=== PATIENT | female | born 1930 | race African-American/Black ===

== ENCOUNTER 2018-07-31 00:34 | Inpatient (IN) ==
[2018-07-31 02:31] LABS: Basophils % 0.2 % (0.0-0.8); Eosinophils # 0.1 10*3/uL (0.0-0.87); Eosinophils % 0.7 % (0.00-10.9); Hematocrit 29.6 VOL% (35.7-47.0); Hemoglobin 9.4 GM/DL (12.0-16.0); Immature Granulocytes % 0.2 %; Immature Granulocytes Absolute 0.02 #; Lymphocytes # 1.5 10*3/uL (1.4-4.0); Lymphocytes % 18.2 % (21.3-54.2); Mean Corpuscular HGB Conc 31.8 GM/DL (32-36); Mean Corpuscular Hemoglobin 29 PG (27-34); Mean Corpuscular Volume 90.5 FL (87-102); Mean Platelet Volume 11.6 FL (9.6-12.0); Monocytes # 0.8 10*3/uL (0.11-0.8); Monocytes % 9.7 % (1.7-12.7); Platelet Count 160 T/CUMM (130-400); Red Blood Count 3.27 MC/CUMM (3.8-5.5); Red Cell Distribution Width 14.2 % (9.3-17.3); White Blood Count 8.5 T/CUMM (4-12)
[2018-07-31 02:39] LABS: Alanine Aminotransferase 12 U/L (13-56); Albumin 3.5 G/DL (3.4-5.0); Alkaline Phosphatase 104 U/L (45-117); Aspartate Amino Transferase 18 U/L (0-37); Bilirubin,Total < 0.39 MG/DL (0.2-1.0); Blood Urea Nitrogen 40 MG/DL (7-18); Calcium 9.5 MG/DL (8.5-10.1); Glucose 97 MG/DL (74-106); INR 0.9; Osmolality,Calculated 286.5 MOS/KG (273-304); Partial Thromboplastin Time < 21.0 SECS (0-40); Potassium 4.2 MMOL/L (3.5-5.1); Sodium 139 MMOL/L (136-145); Total Protein 7.9 G/DL (6.4-8.3)
[2018-07-31] MEDS ORDERED: ONDANSETRON 4 MG/2 ML VIAL IV PRN (03:08)
[2018-07-31 03:12] LABS: Band Neutrophils 1 % (0-10); Eosinophils 1 % (0-10); Lymphocytes 17 % (20-55); Segmented Neutrophils 74 % (50-85); Total Cells Counted 100
[2018-07-31 03:13] LABS: Anisocytosis 1+; Hypochromasia 1+; Platelet Estimate Adequate
[2018-07-31] MEDS: DEXTROSE 5% NACL 0.9% 1,000 ML IV SCH (04:21)
[2018-07-31 05:42] LABS: Basophils % 0.4 % (0.0-0.8); Eosinophils # 0.1 10*3/uL (0.0-0.87); Hematocrit 24.6 VOL% (35.7-47.0); Hemoglobin 7.7 GM/DL (12.0-16.0); Immature Granulocytes % 0.4 %; Immature Granulocytes Absolute 0.03 #; Lymphocytes # 1.4 10*3/uL (1.4-4.0); Lymphocytes % 19.9 % (21.3-54.2); Mean Corpuscular HGB Conc 31.3 GM/DL (32-36); Mean Corpuscular Hemoglobin 29 PG (27-34); Mean Corpuscular Volume 91.4 FL (87-102); Mean Platelet Volume 11.2 FL (9.6-12.0); Monocytes # 0.7 10*3/uL (0.11-0.8); Monocytes % 9.4 % (1.7-12.7); Neutrophils # 4.7 10*3/uL (1.4-7.4); Neutrophils % 68.9 % (38.7-73.9); Platelet Count 139 T/CUMM (130-400); Red Blood Count 2.69 MC/CUMM (3.8-5.5); Red Cell Distribution Width 14.3 % (9.3-17.3); White Blood Count 6.9 T/CUMM (4-12)
[2018-07-31] MEDS ORDERED: SODIUM CHLORIDE 0.9% 1,000 ML IV PRN (08:14)
[2018-07-31] MEDS: PANTOPRAZOLE 40 MG VIAL IV SCH (10:27)
[2018-07-31] MEDS: DILTIAZEM CD 120 MG CAPSULE PO SCH (10:30)
[2018-07-31] MEDS: METOCLOPRAMIDE 5 MG TABLET PO SCH ×4 (11:17→21:08)
[2018-07-31] MEDS ORDERED: FUROSEMIDE 40 MG/4 ML VIAL IV ONE (13:00)
[2018-07-31 20:48] LABS: Hematocrit 33.6 VOL% (35.7-47.0)
[2018-08-01] MEDS: DEXTROSE 5% NACL 0.9% 1,000 ML IV SCH ×2 (00:42→12:25)
[2018-08-01 04:47] LABS: Basophils % 0.3 % (0.0-0.8); Eosinophils # 0.1 10*3/uL (0.0-0.87); Eosinophils % 1.2 % (0.00-10.9); Hematocrit 31.5 VOL% (35.7-47.0); Hemoglobin 10.3 GM/DL (12.0-16.0); Immature Granulocytes % 0.5 %; Immature Granulocytes Absolute 0.03 #; Lymphocytes # 1.3 10*3/uL (1.4-4.0); Lymphocytes % 20.1 % (21.3-54.2); Mean Corpuscular HGB Conc 32.7 GM/DL (32-36); Mean Corpuscular Hemoglobin 30 PG (27-34); Mean Corpuscular Volume 91.3 FL (87-102); Mean Platelet Volume 10.9 FL (9.6-12.0); Monocytes # 0.6 10*3/uL (0.11-0.8); Monocytes % 9.8 % (1.7-12.7); Neutrophils # 4.4 10*3/uL (1.4-7.4); Neutrophils % 68.1 % (38.7-73.9); Platelet Count 137 T/CUMM (130-400); Red Blood Count 3.45 MC/CUMM (3.8-5.5); Red Cell Distribution Width 14.7 % (9.3-17.3); White Blood Count 6.5 T/CUMM (4-12)
[2018-08-01 05:16] LABS: Calcium 9.2 MG/DL (8.5-10.1); Osmolality,Calculated 292.7 MOS/KG (273-304); Potassium 3.6 MMOL/L (3.5-5.1)
[2018-08-01] MEDS: METOCLOPRAMIDE 5 MG TABLET PO SCH ×4 (06:40→20:56)
[2018-08-01] MEDS: LEVOTHYROXINE 75 MCG TABLET PO SCH (06:40)
[2018-08-01] MEDS ORDERED: cloNIDine 0.2 MG/24 HR PATCH TRANSDERM SCH (09:00)
[2018-08-01] MEDS: PANTOPRAZOLE 40 MG VIAL IV SCH (09:50)
[2018-08-01] MEDS: DILTIAZEM CD 120 MG CAPSULE PO SCH (10:24)
[2018-08-01 13:49] LABS: Hematocrit 28.7 VOL% (35.7-47.0); Hemoglobin 9.2 GM/DL (12.0-16.0)
[2018-08-01 22:16] LABS: Hematocrit 23.8 VOL% (35.7-47.0); Hemoglobin 7.5 GM/DL (12.0-16.0)
[2018-08-02 04:27] LABS: Hematocrit 26.7 VOL% (35.7-47.0); Hemoglobin 8.3 GM/DL (12.0-16.0)
[2018-08-02 04:28] LABS: Basophils % 0.3 % (0.0-0.8); Eosinophils # 0.1 10*3/uL (0.0-0.87); Eosinophils % 0.6 % (0.00-10.9); Hemoglobin 8.2 GM/DL (12.0-16.0); Immature Granulocytes % 0.8 %; Lymphocytes # 1.6 10*3/uL (1.4-4.0); Lymphocytes % 12.7 % (21.3-54.2); Mean Corpuscular HGB Conc 31.5 GM/DL (32-36); Mean Corpuscular Hemoglobin 30 PG (27-34); Mean Corpuscular Volume 93.9 FL (87-102); Mean Platelet Volume 11.5 FL (9.6-12.0); Monocytes # 1.3 10*3/uL (0.11-0.8); Neutrophils # 9.4 10*3/uL (1.4-7.4); Neutrophils % 75.6 % (38.7-73.9); Platelet Count 102 T/CUMM (130-400); Red Blood Count 2.77 MC/CUMM (3.8-5.5); Red Cell Distribution Width 14.9 % (9.3-17.3); White Blood Count 12.5 T/CUMM (4-12)
[2018-08-02 04:42] LABS: Osmolality,Calculated 291.7 MOS/KG (273-304); Potassium 3.5 MMOL/L (3.5-5.1)
[2018-08-02] MEDS: METOCLOPRAMIDE 5 MG TABLET PO SCH ×4 (06:45→21:02)
[2018-08-02] MEDS: LEVOTHYROXINE 75 MCG TABLET PO SCH (06:46)
[2018-08-02] MEDS: DILTIAZEM CD 120 MG CAPSULE PO SCH (08:26)
[2018-08-02] MEDS: PANTOPRAZOLE 40 MG VIAL IV SCH (08:27)
[2018-08-02 13:46] LABS: Hematocrit 22.5 VOL% (35.7-47.0)
[2018-08-02] MEDS ORDERED: diphenhydrAMINE CAP 25 MG CAPSULE PO ONE (17:41)
[2018-08-02] MEDS: ACETAMINOPHEN 325 MG TABLET PO PRN (17:49)
[2018-08-02] MEDS ORDERED: SODIUM CHLORIDE 0.9% 1,000 ML IV PRN (23:44)
[2018-08-03 00:12] LABS: Hematocrit 23.6 VOL% (35.7-47.0); Hemoglobin 7.7 GM/DL (12.0-16.0)
[2018-08-03] MEDS: DEXTROSE 5% NACL 0.9% 1,000 ML IV SCH ×2 (05:10→20:32)
[2018-08-03 05:29] LABS: Basophils % 0.3 % (0.0-0.8); Eosinophils # 0.1 10*3/uL (0.0-0.87); Eosinophils % 1.2 % (0.00-10.9); Hematocrit 25.5 VOL% (35.7-47.0); Hemoglobin 8.3 GM/DL (12.0-16.0); Immature Granulocytes % 0.5 %; Immature Granulocytes Absolute 0.05 #; Lymphocytes # 1.1 10*3/uL (1.4-4.0); Lymphocytes % 10.8 % (21.3-54.2); Mean Corpuscular HGB Conc 32.5 GM/DL (32-36); Mean Corpuscular Hemoglobin 31 PG (27-34); Mean Corpuscular Volume 93.8 FL (87-102); Mean Platelet Volume 10.5 FL (9.6-12.0); Monocytes # 1.2 10*3/uL (0.11-0.8); Monocytes % 11.7 % (1.7-12.7); Neutrophils # 7.7 10*3/uL (1.4-7.4); Neutrophils % 75.5 % (38.7-73.9); Platelet Count 110 T/CUMM (130-400); Red Blood Count 2.72 MC/CUMM (3.8-5.5); White Blood Count 10.2 T/CUMM (4-12)
[2018-08-03 06:05] LABS: Calcium 8.3 MG/DL (8.5-10.1); Osmolality,Calculated 291.6 MOS/KG (273-304); Potassium 3.6 MMOL/L (3.5-5.1)
[2018-08-03] MEDS: LEVOTHYROXINE 75 MCG TABLET PO SCH (07:20)
[2018-08-03] MEDS: METOCLOPRAMIDE 5 MG TABLET PO SCH ×4 (09:03→20:26)
[2018-08-03] MEDS: PANTOPRAZOLE 40 MG VIAL IV SCH (09:05)
[2018-08-03] MEDS: DILTIAZEM CD 120 MG CAPSULE PO SCH (09:05)
[2018-08-03] MEDS ORDERED: LIDOCAINE 2% 5 ML VIAL ONE (12:32)
[2018-08-03] MEDS ORDERED: PROPOFOL 200 MG/20 ML VIAL IV ONE (12:32)
[2018-08-03] MEDS: ACETAMINOPHEN 325 MG TABLET PO PRN (14:05)
[2018-08-03 18:58] LABS: Hemoglobin 10.5 GM/DL (12.0-16.0)
[2018-08-04 05:50] LABS: Calcium 8.3 MG/DL (8.5-10.1); Osmolality,Calculated 283.1 MOS/KG (273-304); Potassium 3.5 MMOL/L (3.5-5.1)
[2018-08-04] MEDS: LEVOTHYROXINE 75 MCG TABLET PO SCH (05:50)
[2018-08-04 05:56] LABS: Basophils % 0.3 % (0.0-0.8); Eosinophils # 0.1 10*3/uL (0.0-0.87); Eosinophils % 0.9 % (0.00-10.9); Hematocrit 34.4 VOL% (35.7-47.0); Hemoglobin 10.8 GM/DL (12.0-16.0); Immature Granulocytes % 0.7 %; Immature Granulocytes Absolute 0.07 #; Lymphocytes # 1.1 10*3/uL (1.4-4.0); Mean Corpuscular HGB Conc 31.4 GM/DL (32-36); Mean Corpuscular Hemoglobin 30 PG (27-34); Mean Corpuscular Volume 96.4 FL (87-102); Mean Platelet Volume 12.7 FL (9.6-12.0); Monocytes # 1.2 10*3/uL (0.11-0.8); Monocytes % 11.3 % (1.7-12.7); Neutrophils # 8.2 10*3/uL (1.4-7.4); Neutrophils % 76.8 % (38.7-73.9); Platelet Count 62 T/CUMM (130-400); Red Blood Count 3.57 MC/CUMM (3.8-5.5); Red Cell Distribution Width 15.4 % (9.3-17.3); White Blood Count 10.6 T/CUMM (4-12)
[2018-08-04 06:03] LABS: Hypochromasia 1+
[2018-08-04 06:04] LABS: Microcytosis 1+; Ovalocytes Slight
[2018-08-04] MEDS: METOCLOPRAMIDE 5 MG TABLET PO SCH ×4 (08:59→20:35)
[2018-08-04] MEDS: PANTOPRAZOLE 40 MG VIAL IV SCH (09:03)
[2018-08-04] MEDS: DEXTROSE 5% NACL 0.9% 1,000 ML IV SCH ×2 (09:08→20:37)
[2018-08-04] MEDS: DILTIAZEM CD 120 MG CAPSULE PO SCH (09:19)
[2018-08-04] MEDS ORDERED: BISACODYL 5 MG TABLET PO ONE (12:00)
[2018-08-04] MEDS ORDERED: POLYETHYLENE GLYCOL POWDER 255 GM BOTTLE PO ONE (13:00)
[2018-08-05] MEDS: ACETAMINOPHEN 325 MG TABLET PO PRN (00:03)
[2018-08-05 04:32] LABS: Basophils % 0.2 % (0.0-0.8); Eosinophils # 0.1 10*3/uL (0.0-0.87); Eosinophils % 0.9 % (0.00-10.9); Hematocrit 28.8 VOL% (35.7-47.0); Hemoglobin 9.6 GM/DL (12.0-16.0); Immature Granulocytes % 0.4 %; Immature Granulocytes Absolute 0.04 #; Lymphocytes # 1.2 10*3/uL (1.4-4.0); Lymphocytes % 13.2 % (21.3-54.2); Mean Corpuscular HGB Conc 33.3 GM/DL (32-36); Mean Corpuscular Hemoglobin 30 PG (27-34); Mean Corpuscular Volume 90.9 FL (87-102); Mean Platelet Volume 11.3 FL (9.6-12.0); Monocytes % 11.1 % (1.7-12.7); Neutrophils % 74.2 % (38.7-73.9); Platelet Count 118 T/CUMM (130-400); Red Blood Count 3.17 MC/CUMM (3.8-5.5); Red Cell Distribution Width 14.9 % (9.3-17.3); White Blood Count 9.4 T/CUMM (4-12)
[2018-08-05 04:55] LABS: Calcium 8.3 MG/DL (8.5-10.1); Osmolality,Calculated 290.4 MOS/KG (273-304)
[2018-08-05] MEDS: LEVOTHYROXINE 75 MCG TABLET PO SCH (07:35)
[2018-08-05] MEDS: DILTIAZEM CD 120 MG CAPSULE PO SCH (08:47)
[2018-08-05] MEDS: POTASSIUM CHLORIDE RIDER 10 MEQ in PREMIX 1 EACH IV PRN ×5 (08:49→23:38)
[2018-08-05] MEDS: METOCLOPRAMIDE 5 MG TABLET PO SCH ×4 (09:12→21:13)
[2018-08-05] MEDS: PANTOPRAZOLE 40 MG VIAL IV SCH (09:51)
[2018-08-05] MEDS ORDERED: LACTATED RINGERS 500 ML IV ONE (11:13)
[2018-08-05] MEDS ORDERED: POLYETHYLENE GLYCOL POWDER 255 GM BOTTLE PO ONE (13:00)
[2018-08-05] MEDS ORDERED: cloNIDine 0.1 MG TABLET PO PRN (16:19)
[2018-08-05] MEDS ORDERED: cloNIDine 0.1 MG/24 HR PATCH TRANSDERM SCH (17:00)
[2018-08-05] MEDS: DEXTROSE 5% NACL 0.9% 1,000 ML IV SCH ×2 (21:12→21:16)
[2018-08-06] MEDS: POTASSIUM CHLORIDE RIDER 10 MEQ in PREMIX 1 EACH IV PRN ×2 (00:44→02:29)
[2018-08-06 05:26] LABS: Basophils % 0.2 % (0.0-0.8); Eosinophils # 0.1 10*3/uL (0.0-0.87); Eosinophils % 1.3 % (0.00-10.9); Hematocrit 30.4 VOL% (35.7-47.0); Hemoglobin 10.1 GM/DL (12.0-16.0); Immature Granulocytes % 0.4 %; Immature Granulocytes Absolute 0.04 #; Lymphocytes # 1.2 10*3/uL (1.4-4.0); Lymphocytes % 12.9 % (21.3-54.2); Mean Corpuscular HGB Conc 33.2 GM/DL (32-36); Mean Corpuscular Hemoglobin 30 PG (27-34); Mean Corpuscular Volume 91.3 FL (87-102); Mean Platelet Volume 10.8 FL (9.6-12.0); Monocytes # 0.9 10*3/uL (0.11-0.8); Monocytes % 9.7 % (1.7-12.7); Neutrophils # 7.2 10*3/uL (1.4-7.4); Neutrophils % 75.5 % (38.7-73.9); Platelet Count 140 T/CUMM (130-400); Red Blood Count 3.33 MC/CUMM (3.8-5.5); Red Cell Distribution Width 14.6 % (9.3-17.3); White Blood Count 9.5 T/CUMM (4-12)
[2018-08-06 05:35] LABS: Calcium 8.4 MG/DL (8.5-10.1); Osmolality,Calculated 285.7 MOS/KG (273-304)
[2018-08-06] MEDS: METOCLOPRAMIDE 5 MG TABLET PO SCH ×4 (08:50→21:03)
[2018-08-06] MEDS: LEVOTHYROXINE 75 MCG TABLET PO SCH (08:51)
[2018-08-06] MEDS: PANTOPRAZOLE 40 MG VIAL IV SCH (08:51)
[2018-08-06] MEDS: DILTIAZEM CD 120 MG CAPSULE PO SCH (09:33)
[2018-08-06] MEDS: DEXTROSE 5% NACL 0.9% 1,000 ML IV SCH (10:54)
[2018-08-06] MEDS ORDERED: cloNIDine 0.2 MG/24 HR PATCH TRANSDERM SCH (11:30)
[2018-08-06] MEDS ORDERED: PROPOFOL 200 MG/20 ML VIAL IV ONE (12:50)
[2018-08-06] MEDS ORDERED: ETOMIDATE 20 MG/10 ML VIAL IV ONE (12:50)
[2018-08-06] MEDS ORDERED: LIDOCAINE 2% 5 ML VIAL ONE (12:50)
[2018-08-07] MEDS: DEXTROSE 5% NACL 0.9% 1,000 ML IV SCH (00:57)
[2018-08-07] MEDS: LEVOTHYROXINE 75 MCG TABLET PO SCH (05:59)
[2018-08-07 07:25] LABS: Basophils % 0.4 % (0.0-0.8); Eosinophils # 0.1 10*3/uL (0.0-0.87); Eosinophils % 1.3 % (0.00-10.9); Hematocrit 32.6 VOL% (35.7-47.0); Hemoglobin 10.5 GM/DL (12.0-16.0); Immature Granulocytes % 0.5 %; Immature Granulocytes Absolute 0.04 #; Lymphocytes # 1.2 10*3/uL (1.4-4.0); Mean Corpuscular HGB Conc 32.2 GM/DL (32-36); Mean Corpuscular Hemoglobin 30 PG (27-34); Mean Corpuscular Volume 92.6 FL (87-102); Monocytes # 0.7 10*3/uL (0.11-0.8); Monocytes % 8.3 % (1.7-12.7); Neutrophils # 6.3 10*3/uL (1.4-7.4); Neutrophils % 75.5 % (38.7-73.9); Platelet Count 147 T/CUMM (130-400); Red Blood Count 3.52 MC/CUMM (3.8-5.5); Red Cell Distribution Width 14.8 % (9.3-17.3); White Blood Count 8.4 T/CUMM (4-12)
[2018-08-07 07:41] LABS: Calcium 8.8 MG/DL (8.5-10.1); Osmolality,Calculated 283.8 MOS/KG (273-304); Potassium 3.6 MMOL/L (3.5-5.1)
[2018-08-07] MEDS: PANTOPRAZOLE 40 MG VIAL IV SCH (10:12)
[2018-08-07] MEDS: METOCLOPRAMIDE 5 MG TABLET PO SCH ×2 (10:15→12:31)
[2018-08-07] MEDS: DILTIAZEM CD 120 MG CAPSULE PO SCH (10:15)
[2018-08-07 11:34] VITALS: BP 177/66
== END 2018-08-07 13:46 | disposition home health service (06) | DRG 378 ==
LOC: N.ED 00:34 → N.EDINP 03:08 → N.2E 03:32
PROVIDERS: ADMIT Internal Medicine; ATTEND Internal Medicine

== ENCOUNTER 2019-11-21 10:53 | Inpatient (IN) ==
[2019-11-21] MEDS ORDERED: SODIUM CHLORIDE 0.9% 500 ML IV STA (11:18)
[2019-11-21] MEDS ORDERED: PANTOPRAZOLE 40 MG VIAL IV STA (11:18)
[2019-11-21 11:30] LABS: Basophils % 0.3 % (0.0-0.8); Eosinophils # 0.1 10*3/uL (0.0-0.87); Eosinophils % 1.4 % (0.00-10.9); Hematocrit 29.8 VOL% (35.7-47.0); Hemoglobin 9.3 GM/DL (12.0-16.0); Immature Granulocytes % 0.3 %; Immature Granulocytes Absolute 0.02 #; Lymphocytes # 1.1 10*3/uL (1.4-4.0); Lymphocytes % 16.5 % (21.3-54.2); Mean Corpuscular HGB Conc 31.2 GM/DL (32-36); Mean Corpuscular Volume 96.1 FL (87-102); Mean Platelet Volume 10.3 FL (9.6-12.0); Monocytes % 8.3 % (1.7-12.7); Neutrophils % 73.2 % (38.7-73.9); Platelet Count 171 T/CUMM (130-400); Red Cell Distribution Width 13.9 % (9.3-17.3); White Blood Count 6.4 T/CUMM (4-12)
[2019-11-21 11:48] LABS: Alanine Aminotransferase 13 U/L (13-56); Albumin 3.2 G/DL (3.4-5.0); Alkaline Phosphatase 120 U/L (45-117); Aspartate Amino Transferase 17 U/L (0-37); Bilirubin,Total < 0.39 MG/DL (0.2-1.0); Blood Urea Nitrogen 38 MG/DL (7-18); Calcium 9.2 MG/DL (8.5-10.1); Estimated Glom Filtration Rate 0 ML/MIN; Glucose 94 MG/DL (74-106); Osmolality,Calculated 287.4 MOS/KG (273-304); Total Protein 7.5 G/DL (6.4-8.3)
[2019-11-21 11:51] LABS: PT Patient Result 10.9 SECS (9.8-11.9)
[2019-11-21] MEDS ORDERED: ONDANSETRON 4 MG/2 ML VIAL IV PRN (13:09)
[2019-11-21] MEDS ORDERED: DEXTROSE 50% 25 GM/50 ML VIAL IV PRN (13:09)
[2019-11-21] MEDS ORDERED: MORPHINE 4 MG/1 ML VIAL IV PRN (13:09)
[2019-11-21] MEDS ORDERED: GLUCAGON 1 MG VIAL IM PRN (13:09)
[2019-11-21] MEDS: SODIUM CHLORIDE 0.45% 1,000 ML IV SCH (16:15)
[2019-11-21] MEDS ORDERED: INSULIN LISPRO 100 UNIT/ML SUBCUT SCH (16:30)
[2019-11-21] MEDS ORDERED: cloNIDine 0.1 MG TABLET PO PRN (19:54)
[2019-11-21] MEDS: FERROUS SULFATE 325 MG TABLET PO SCH (20:43)
[2019-11-21] MEDS: CITALOPRAM 20 MG TABLET PO SCH (20:43)
[2019-11-21] MEDS ORDERED: NON-FORMULARY MEDICATION (Citalopram 10 MG) PO SCH (21:00)
[2019-11-21 22:17] LABS: Hematocrit 26.1 VOL% (35.7-47.0); Hemoglobin 8.2 GM/DL (12.0-16.0)
[2019-11-22 03:41] LABS: Basophils % 0.3 % (0.0-0.8); Eosinophils # 0.1 10*3/uL (0.0-0.87); Eosinophils % 1.9 % (0.00-10.9); Hematocrit 26.6 VOL% (35.7-47.0); Hemoglobin 8.6 GM/DL (12.0-16.0); Immature Granulocytes % 0.1 %; Immature Granulocytes Absolute 0.01 #; Lymphocytes # 1.5 10*3/uL (1.4-4.0); Lymphocytes % 21.7 % (21.3-54.2); Mean Corpuscular HGB Conc 32.3 GM/DL (32-36); Mean Corpuscular Volume 94.7 FL (87-102); Mean Platelet Volume 10.4 FL (9.6-12.0); Monocytes % 9.7 % (1.7-12.7); Neutrophils % 66.3 % (38.7-73.9); Platelet Count 142 T/CUMM (130-400); Red Blood Count 2.81 MC/CUMM (3.8-5.5); Red Cell Distribution Width 14.1 % (9.3-17.3); White Blood Count 6.9 T/CUMM (4-12)
[2019-11-22 04:09] LABS: Calcium 9.1 MG/DL (8.5-10.1); Osmolality,Calculated 286.4 MOS/KG (273-304)
[2019-11-22] MEDS: SODIUM CHLORIDE 0.45% 1,000 ML IV SCH ×2 (06:30→18:25)
[2019-11-22] MEDS: LEVOTHYROXINE 75 MCG TABLET PO SCH (06:42)
[2019-11-22] MEDS: PANTOPRAZOLE 40 MG VIAL IV SCH (09:17)
[2019-11-22] MEDS: FERROUS SULFATE 325 MG TABLET PO SCH ×2 (09:19→21:52)
[2019-11-22] MEDS: hydroCHLOROthiazide 25 MG TABLET PO SCH (09:19)
[2019-11-22] MEDS: POTASSIUM CHLORIDE 20 MEQ TABLET PO SCH (09:19)
[2019-11-22] MEDS: DILTIAZEM CD 180 MG CAPSULE PO SCH (09:20)
[2019-11-22 09:40] LABS: Hematocrit 30.5 VOL% (35.7-47.0); Hemoglobin 9.4 GM/DL (12.0-16.0)
[2019-11-22] MEDS: CITALOPRAM 20 MG TABLET PO SCH (21:52)
[2019-11-23 05:58] LABS: Basophils % 0.5 % (0.0-0.8); Eosinophils # 0.1 10*3/uL (0.0-0.87); Hematocrit 27.2 VOL% (35.7-47.0); Hemoglobin 8.5 GM/DL (12.0-16.0); Immature Granulocytes % 0.3 %; Immature Granulocytes Absolute 0.02 #; Lymphocytes # 1.4 10*3/uL (1.4-4.0); Lymphocytes % 22.3 % (21.3-54.2); Mean Corpuscular HGB Conc 31.3 GM/DL (32-36); Mean Corpuscular Volume 97.1 FL (87-102); Mean Platelet Volume 10.7 FL (9.6-12.0); Monocytes % 8.9 % (1.7-12.7); Platelet Count 154 T/CUMM (130-400); Red Cell Distribution Width 13.8 % (9.3-17.3); White Blood Count 6.2 T/CUMM (4-12)
[2019-11-23] MEDS: LEVOTHYROXINE 75 MCG TABLET PO SCH (06:27)
[2019-11-23] MEDS: SODIUM CHLORIDE 0.45% 1,000 ML IV SCH ×2 (06:36→21:50)
[2019-11-23 06:54] LABS: Calcium 9.1 MG/DL (8.5-10.1); Osmolality,Calculated 286.1 MOS/KG (273-304)
[2019-11-23] MEDS: FERROUS SULFATE 325 MG TABLET PO SCH ×2 (08:41→21:47)
[2019-11-23] MEDS: PANTOPRAZOLE 40 MG VIAL IV SCH (08:41)
[2019-11-23] MEDS: POTASSIUM CHLORIDE 20 MEQ TABLET PO SCH (08:41)
[2019-11-23] MEDS: hydroCHLOROthiazide 25 MG TABLET PO SCH (08:42)
[2019-11-23] MEDS: DILTIAZEM CD 180 MG CAPSULE PO SCH (08:42)
[2019-11-23] MEDS ORDERED: propofoL 200 MG/20 ML VIAL IV ONE (09:00)
[2019-11-23] MEDS ORDERED: LIDOCAINE 2% 5 ML VIAL ONE (09:00)
[2019-11-23] MEDS ORDERED: ETOMIDATE 20 MG/10 ML VIAL IV ONE (09:00)
[2019-11-23] MEDS ORDERED: hydrALAZINE 20 MG/1 ML VIAL ONE (09:00)
[2019-11-23] MEDS: LACTATED RINGERS 1,000 ML IV SCH (12:15)
[2019-11-23] MEDS ORDERED: DEXTROSE 50% 25 GM/50 ML VIAL IV PRN (13:09)
[2019-11-23] MEDS ORDERED: GLUCAGON 1 MG VIAL IM PRN (13:09)
[2019-11-23] MEDS: CITALOPRAM 20 MG TABLET PO SCH (21:47)
[2019-11-23] MEDS: ACETAMINOPHEN 325 MG TABLET PO PRN (22:43)
[2019-11-24] MEDS: LEVOTHYROXINE 75 MCG TABLET PO SCH (05:39)
[2019-11-24 06:18] LABS: Basophils % 0.5 % (0.0-0.8); Eosinophils # 0.1 10*3/uL (0.0-0.87); Eosinophils % 1.5 % (0.00-10.9); Hematocrit 27.1 VOL% (35.7-47.0); Hemoglobin 8.5 GM/DL (12.0-16.0); Immature Granulocytes % 0.4 %; Immature Granulocytes Absolute 0.03 #; Lymphocytes # 1.3 10*3/uL (1.4-4.0); Lymphocytes % 15.2 % (21.3-54.2); Mean Corpuscular HGB Conc 31.4 GM/DL (32-36); Mean Corpuscular Volume 96.8 FL (87-102); Mean Platelet Volume 10.8 FL (9.6-12.0); Neutrophils % 74.4 % (38.7-73.9); Platelet Count 162 T/CUMM (130-400); Red Cell Distribution Width 14.2 % (9.3-17.3); White Blood Count 8.2 T/CUMM (4-12)
[2019-11-24 06:47] LABS: Calcium 9.1 MG/DL (8.5-10.1); Osmolality,Calculated 284.1 MOS/KG (273-304)
[2019-11-24] MEDS: LACTATED RINGERS 1,000 ML IV SCH (09:44)
[2019-11-24] MEDS: POTASSIUM CHLORIDE 20 MEQ TABLET PO SCH (09:46)
[2019-11-24] MEDS: PANTOPRAZOLE 40 MG VIAL IV SCH (09:46)
[2019-11-24] MEDS: FERROUS SULFATE 325 MG TABLET PO SCH ×3 (09:46→20:46)
[2019-11-24] MEDS: hydroCHLOROthiazide 25 MG TABLET PO SCH (09:46)
[2019-11-24] MEDS: DILTIAZEM CD 180 MG CAPSULE PO SCH (09:46)
[2019-11-24] MEDS: SODIUM CHLORIDE 0.45% 1,000 ML IV SCH (11:42)
[2019-11-24] MEDS: CITALOPRAM 20 MG TABLET PO SCH (20:46)
[2019-11-24] MEDS: ACETAMINOPHEN 325 MG TABLET PO PRN (21:10)
[2019-11-25] MEDS: SODIUM CHLORIDE 0.45% 1,000 ML IV SCH (00:43)
[2019-11-25 05:15] LABS: Basophils % 0.3 % (0.0-0.8); Eosinophils # 0.2 10*3/uL (0.0-0.87); Hematocrit 25.9 VOL% (35.7-47.0); Hemoglobin 8.5 GM/DL (12.0-16.0); Immature Granulocytes % 0.3 %; Immature Granulocytes Absolute 0.02 #; Lymphocytes # 1.2 10*3/uL (1.4-4.0); Lymphocytes % 16.8 % (21.3-54.2); Mean Corpuscular HGB Conc 32.8 GM/DL (32-36); Mean Corpuscular Volume 93.8 FL (87-102); Mean Platelet Volume 10.6 FL (9.6-12.0); Monocytes % 9.8 % (1.7-12.7); Neutrophils % 70.8 % (38.7-73.9); Platelet Count 146 T/CUMM (130-400); Red Blood Count 2.76 MC/CUMM (3.8-5.5); Red Cell Distribution Width 14.1 % (9.3-17.3); White Blood Count 7.3 T/CUMM (4-12)
[2019-11-25 05:24] LABS: Calcium 9.1 MG/DL (8.5-10.1); Osmolality,Calculated 283.1 MOS/KG (273-304)
[2019-11-25] MEDS: LEVOTHYROXINE 75 MCG TABLET PO SCH (06:00)
[2019-11-25] MEDS ORDERED: SODIUM CHLORIDE 0.9% 1,000 ML IV PRN (07:58)
[2019-11-25] MEDS: DILTIAZEM CD 180 MG CAPSULE PO SCH (09:13)
[2019-11-25] MEDS: POTASSIUM CHLORIDE 20 MEQ TABLET PO SCH (09:14)
[2019-11-25] MEDS: hydroCHLOROthiazide 25 MG TABLET PO SCH (09:14)
[2019-11-25] MEDS: PANTOPRAZOLE 40 MG VIAL IV SCH (09:14)
[2019-11-25] MEDS: FERROUS SULFATE 325 MG TABLET PO SCH ×2 (09:26→21:17)
[2019-11-25] MEDS ORDERED: FUROSEMIDE 40 MG/4 ML VIAL IV ONE (12:00)
[2019-11-25 20:11] LABS: Hematocrit 31.5 VOL% (35.7-47.0); Hemoglobin 10.2 GM/DL (12.0-16.0)
[2019-11-25] MEDS: CITALOPRAM 20 MG TABLET PO SCH (21:14)
[2019-11-26] MEDS: LEVOTHYROXINE 75 MCG TABLET PO SCH (06:35)
[2019-11-26 06:43] LABS: Basophils % 0.4 % (0.0-0.8); Eosinophils # 0.2 10*3/uL (0.0-0.87); Eosinophils % 2.3 % (0.00-10.9); Hematocrit 32.8 VOL% (35.7-47.0); Hemoglobin 10.8 GM/DL (12.0-16.0); Immature Granulocytes % 0.3 %; Immature Granulocytes Absolute 0.02 #; Lymphocytes # 1.1 10*3/uL (1.4-4.0); Lymphocytes % 15.8 % (21.3-54.2); Mean Corpuscular HGB Conc 32.9 GM/DL (32-36); Mean Corpuscular Volume 90.9 FL (87-102); Mean Platelet Volume 10.7 FL (9.6-12.0); Monocytes % 9.6 % (1.7-12.7); Neutrophils % 71.6 % (38.7-73.9); Platelet Count 152 T/CUMM (130-400); Red Blood Count 3.61 MC/CUMM (3.8-5.5); Red Cell Distribution Width 15.1 % (9.3-17.3)
[2019-11-26 07:40] VITALS: BP 182/64
[2019-11-26] MEDS: LACTATED RINGERS 1,000 ML IV SCH (07:58)
[2019-11-26] MEDS: DILTIAZEM CD 180 MG CAPSULE PO SCH (09:15)
[2019-11-26] MEDS: PANTOPRAZOLE 40 MG VIAL IV SCH (09:15)
[2019-11-26] MEDS: hydroCHLOROthiazide 25 MG TABLET PO SCH (09:15)
[2019-11-26] MEDS: FERROUS SULFATE 325 MG TABLET PO SCH (09:15)
[2019-11-26] MEDS: POTASSIUM CHLORIDE 20 MEQ TABLET PO SCH (09:15)
== END 2019-11-26 13:00 | disposition home health service (06) | DRG 378 ==
LOC: N.ED 10:53 → N.EDINP 13:09 → N.3E 15:45
PROVIDERS: ADMIT Internal Medicine; ATTEND Internal Medicine

== ENCOUNTER 2020-02-04 04:37 | Inpatient (IN) ==
[2020-02-04] MEDS ORDERED: ONDANSETRON 4 MG/2 ML VIAL IV STA (04:57)
[2020-02-04] MEDS ORDERED: PANTOPRAZOLE 40 MG VIAL IV STA (04:57)
[2020-02-04] MEDS ORDERED: SODIUM CHLORIDE 0.9% 500 ML IV STA (04:57)
[2020-02-04 05:42] LABS: Basophils % 0.2 % (0.0-0.8); Eosinophils # 0.1 10*3/uL (0.0-0.87); Eosinophils % 0.9 % (0.00-10.9); Hematocrit 25.6 VOL% (35.7-47.0); Hemoglobin 8.2 GM/DL (12.0-16.0); Immature Granulocytes % 0.5 %; Immature Granulocytes Absolute 0.04 #; Lymphocytes # 1.2 10*3/uL (1.4-4.0); Lymphocytes % 14.5 % (21.3-54.2); Mean Corpuscular Volume 95.2 FL (87-102); Mean Platelet Volume 11.4 FL (9.6-12.0); Monocytes % 7.6 % (1.7-12.7); Neutrophils % 76.3 % (38.7-73.9); Platelet Count 146 T/CUMM (130-400); Red Blood Count 2.69 MC/CUMM (3.8-5.5); Red Cell Distribution Width 14.4 % (9.3-17.3); White Blood Count 8.2 T/CUMM (4-12)
[2020-02-04 05:47] LABS: PT Patient Result 11.2 SECS (9.8-11.9)
[2020-02-04 06:15] LABS: Alanine Aminotransferase 9 U/L (13-56); Albumin 2.8 G/DL (3.4-5.0); Alkaline Phosphatase 120 U/L (45-117); Aspartate Amino Transferase 15 U/L (0-37); Bilirubin,Total < 0.39 MG/DL (0.2-1.0); Blood Urea Nitrogen 42 MG/DL (7-18); Calcium 8.7 MG/DL (8.5-10.1); Estimated Glom Filtration Rate 38 ML/MIN; Glucose 104 MG/DL (74-106)
[2020-02-04] MEDS ORDERED: ACETAMINOPHEN 325 MG TABLET PO PRN (06:59)
[2020-02-04] MEDS ORDERED: ONDANSETRON 4 MG/2 ML VIAL IV PRN (06:59)
[2020-02-04 07:57] LABS: Hematocrit 29.5 VOL% (35.7-47.0); Hemoglobin 9.3 GM/DL (12.0-16.0)
[2020-02-04] MEDS ORDERED: propofoL 200 MG/20 ML VIAL IV ONE (09:00)
[2020-02-04] MEDS ORDERED: LIDOCAINE 2% 5 ML VIAL ONE (09:00)
[2020-02-04] MEDS: LACTATED RINGERS 1,000 ML IV SCH (11:58)
[2020-02-04 13:26] LABS: Hematocrit 23.7 VOL% (35.7-47.0); Hemoglobin 7.6 GM/DL (12.0-16.0)
[2020-02-04] MEDS: PANTOPRAZOLE 40 MG VIAL IV SCH (14:42)
[2020-02-04] MEDS: SODIUM CHLORIDE 0.9% 1,000 ML IV SCH ×2 (14:42→22:31)
[2020-02-04] MEDS: DOCUSATE SODIUM 100 MG CAPSULE PO SCH ×2 (14:42→22:19)
[2020-02-04] MEDS: LEVOTHYROXINE 75 MCG TABLET PO SCH (14:43)
[2020-02-04] MEDS: PANTOPRAZOLE 40 MG TABLET PO SCH (15:29)
[2020-02-04] MEDS: POTASSIUM CHLORIDE 20 MEQ TABLET PO SCH (15:29)
[2020-02-04] MEDS: hydroCHLOROthiazide 25 MG TABLET PO SCH (15:29)
[2020-02-04 19:05] LABS: Hematocrit 22.8 VOL% (35.7-47.0); Hemoglobin 7.2 GM/DL (12.0-16.0)
[2020-02-04] MEDS ORDERED: SODIUM CHLORIDE 0.9% 1,000 ML IV PRN (20:24)
[2020-02-04] MEDS ORDERED: FUROSEMIDE 20 MG/2 ML VIAL IV PRN (20:27)
[2020-02-04] MEDS: CITALOPRAM 20 MG TABLET PO SCH (22:19)
[2020-02-05] MEDS: POTASSIUM CHLORIDE 20 MEQ TABLET PO SCH (10:28)
[2020-02-05] MEDS: DOCUSATE SODIUM 100 MG CAPSULE PO SCH ×2 (10:28→22:32)
[2020-02-05] MEDS: hydroCHLOROthiazide 25 MG TABLET PO SCH (10:32)
[2020-02-05] MEDS: PANTOPRAZOLE 40 MG VIAL IV SCH (10:32)
[2020-02-05] MEDS: PANTOPRAZOLE 40 MG TABLET PO SCH (10:32)
[2020-02-05] MEDS: LEVOTHYROXINE 75 MCG TABLET PO SCH (10:32)
[2020-02-05] MEDS: LACTATED RINGERS 1,000 ML IV SCH (10:33)
[2020-02-05 11:36] LABS: Basophils % 0.3 % (0.0-0.8); Eosinophils # 0.1 10*3/uL (0.0-0.87); Eosinophils % 1.4 % (0.00-10.9); Hematocrit 30.4 VOL% (35.7-47.0); Immature Granulocytes % 1.5 %; Lymphocytes # 1.1 10*3/uL (1.4-4.0); Lymphocytes % 16.3 % (21.3-54.2); Mean Corpuscular HGB Conc 32.9 GM/DL (32-36); Mean Platelet Volume 10.6 FL (9.6-12.0); Monocytes % 6.8 % (1.7-12.7); Neutrophils % 73.7 % (38.7-73.9); Red Cell Distribution Width 15.4 % (9.3-17.3); White Blood Count 6.6 T/CUMM (4-12)
[2020-02-05 11:37] LABS: Red Blood Count 3.27 MC/CUMM (3.8-5.5)
[2020-02-05 11:38] LABS: Platelet Count 115 T/CUMM (130-400)
[2020-02-05] MEDS: SODIUM CHLORIDE 0.9% 1,000 ML IV SCH ×3 (15:50→22:33)
[2020-02-05] MEDS: CITALOPRAM 20 MG TABLET PO SCH (22:32)
[2020-02-05] MEDS: traMADol 50 MG TABLET PO PRN (22:33)
[2020-02-06 04:15] LABS: Basophils % 0.3 % (0.0-0.8); Eosinophils # 0.1 10*3/uL (0.0-0.87); Eosinophils % 1.2 % (0.00-10.9); Hematocrit 28.3 VOL% (35.7-47.0); Hemoglobin 9.3 GM/DL (12.0-16.0); Immature Granulocytes % 0.4 %; Immature Granulocytes Absolute 0.03 #; Lymphocytes # 1.3 10*3/uL (1.4-4.0); Lymphocytes % 19.1 % (21.3-54.2); Mean Corpuscular HGB Conc 32.9 GM/DL (32-36); Mean Corpuscular Volume 90.7 FL (87-102); Monocytes % 9.4 % (1.7-12.7); Neutrophils % 69.6 % (38.7-73.9); Platelet Count 109 T/CUMM (130-400); Red Blood Count 3.12 MC/CUMM (3.8-5.5); Red Cell Distribution Width 15.6 % (9.3-17.3); White Blood Count 6.8 T/CUMM (4-12)
[2020-02-06 04:34] LABS: Calcium 8.5 MG/DL (8.5-10.1); Osmolality,Calculated 292.7 MOS/KG (273-304)
[2020-02-06 04:41] LABS: Platelet Estimate Adequate
[2020-02-06] MEDS: SODIUM CHLORIDE 0.9% 1,000 ML IV SCH ×3 (06:37→21:14)
[2020-02-06] MEDS: DOCUSATE SODIUM 100 MG CAPSULE PO SCH ×2 (10:06→21:14)
[2020-02-06] MEDS: hydroCHLOROthiazide 25 MG TABLET PO SCH (10:06)
[2020-02-06] MEDS: POTASSIUM CHLORIDE 20 MEQ TABLET PO SCH (10:07)
[2020-02-06] MEDS: PANTOPRAZOLE 40 MG TABLET PO SCH (10:07)
[2020-02-06] MEDS: LEVOTHYROXINE 75 MCG TABLET PO SCH (10:07)
[2020-02-06] MEDS: LACTATED RINGERS 1,000 ML IV SCH (10:07)
[2020-02-06] MEDS: PANTOPRAZOLE 40 MG VIAL IV SCH (10:11)
[2020-02-06] MEDS: hydrALAZINE 25 MG TABLET PO SCH ×2 (16:53→21:13)
[2020-02-06] MEDS: CITALOPRAM 20 MG TABLET PO SCH (21:13)
[2020-02-06] MEDS: traMADol 50 MG TABLET PO PRN (21:13)
[2020-02-07] MEDS: SODIUM CHLORIDE 0.9% 1,000 ML IV SCH ×3 (04:49→20:23)
[2020-02-07 05:56] LABS: Basophils % 0.3 % (0.0-0.8); Eosinophils # 0.1 10*3/uL (0.0-0.87); Eosinophils % 1.6 % (0.00-10.9); Hematocrit 27.6 VOL% (35.7-47.0); Hemoglobin 8.9 GM/DL (12.0-16.0); Immature Granulocytes % 0.3 %; Immature Granulocytes Absolute 0.02 #; Lymphocytes # 1.2 10*3/uL (1.4-4.0); Lymphocytes % 17.2 % (21.3-54.2); Mean Corpuscular HGB Conc 32.2 GM/DL (32-36); Mean Corpuscular Volume 92.3 FL (87-102); Mean Platelet Volume 10.9 FL (9.6-12.0); Monocytes % 9.8 % (1.7-12.7); Neutrophils % 70.8 % (38.7-73.9); Platelet Count 117 T/CUMM (130-400); Red Blood Count 2.99 MC/CUMM (3.8-5.5); Red Cell Distribution Width 15.2 % (9.3-17.3); White Blood Count 6.9 T/CUMM (4-12)
[2020-02-07 06:23] LABS: Microcytosis 1+
[2020-02-07 06:24] LABS: Hypochromasia Slight; Platelet Estimate Decreased
[2020-02-07 06:33] LABS: Calcium 8.6 MG/DL (8.5-10.1); Osmolality,Calculated 289.7 MOS/KG (273-304)
[2020-02-07] MEDS ORDERED: SODIUM CHLORIDE 0.9% 1,000 ML IV PRN (08:21)
[2020-02-07] MEDS ORDERED: POLYETHYLENE GLYCOL POWDER 255 GM BOTTLE PO STA (08:26)
[2020-02-07 08:51] LABS: Hematocrit 27.1 VOL% (35.7-47.0); Hemoglobin 8.7 GM/DL (12.0-16.0)
[2020-02-07] MEDS ORDERED: ONDANSETRON 4 MG/2 ML VIAL ONE (09:00)
[2020-02-07] MEDS ORDERED: LIDOCAINE 2% 5 ML VIAL ONE (09:00)
[2020-02-07] MEDS ORDERED: propofoL 200 MG/20 ML VIAL IV ONE (09:00)
[2020-02-07] MEDS ORDERED: ETOMIDATE 20 MG/10 ML VIAL IV ONE (09:00)
[2020-02-07] MEDS ORDERED: DEXAMETHASONE 4 MG/1 ML VIAL ONE (09:00)
[2020-02-07] MEDS: PANTOPRAZOLE 40 MG VIAL IV SCH (10:05)
[2020-02-07] MEDS: PANTOPRAZOLE 40 MG TABLET PO SCH (14:25)
[2020-02-07] MEDS: POTASSIUM CHLORIDE 20 MEQ TABLET PO SCH (14:25)
[2020-02-07] MEDS: LEVOTHYROXINE 75 MCG TABLET PO SCH (14:25)
[2020-02-07] MEDS: hydroCHLOROthiazide 25 MG TABLET PO SCH (14:25)
[2020-02-07] MEDS: DOCUSATE SODIUM 100 MG CAPSULE PO SCH ×3 (14:25→20:23)
[2020-02-07 16:48] LABS: Hematocrit 36.9 VOL% (35.7-47.0)
[2020-02-07 16:49] LABS: Hemoglobin 12.5 GM/DL (12.0-16.0)
[2020-02-07] MEDS: CITALOPRAM 20 MG TABLET PO SCH (20:23)
[2020-02-07 22:35] LABS: Hematocrit 32.1 VOL% (35.7-47.0); Hemoglobin 10.8 GM/DL (12.0-16.0)
[2020-02-08] MEDS: SODIUM CHLORIDE 0.9% 1,000 ML IV SCH ×2 (04:28→11:39)
[2020-02-08 05:49] LABS: Hematocrit 30.9 VOL% (35.7-47.0); Hemoglobin 10.1 GM/DL (12.0-16.0)
[2020-02-08] MEDS: LEVOTHYROXINE 75 MCG TABLET PO SCH (08:05)
[2020-02-08] MEDS: PANTOPRAZOLE 40 MG TABLET PO SCH (08:05)
[2020-02-08] MEDS: PANTOPRAZOLE 40 MG VIAL IV SCH (08:05)
[2020-02-08] MEDS: DOCUSATE SODIUM 100 MG CAPSULE PO SCH ×2 (08:05→20:31)
[2020-02-08] MEDS: POTASSIUM CHLORIDE 20 MEQ TABLET PO SCH (08:05)
[2020-02-08] MEDS: LACTATED RINGERS 1,000 ML IV SCH ×2 (08:06→08:17)
[2020-02-08] MEDS: hydroCHLOROthiazide 25 MG TABLET PO SCH (08:06)
[2020-02-08] MEDS ORDERED: cloNIDine 0.3 MG/24 HR PATCH TRANSDERM SCH (08:38)
[2020-02-08 10:10] LABS: Hemoglobin 10.3 GM/DL (12.0-16.0)
[2020-02-08 16:18] LABS: Hematocrit 30.5 VOL% (35.7-47.0)
[2020-02-08] MEDS: CITALOPRAM 20 MG TABLET PO SCH (20:31)
[2020-02-09] MEDS: SODIUM CHLORIDE 0.9% 1,000 ML IV SCH ×2 (00:19→08:10)
[2020-02-09 05:00] LABS: Basophils % 0.3 % (0.0-0.8); Eosinophils # 0.1 10*3/uL (0.0-0.87); Eosinophils % 1.3 % (0.00-10.9); Hemoglobin 9.6 GM/DL (12.0-16.0); Immature Granulocytes % 0.4 %; Immature Granulocytes Absolute 0.03 #; Lymphocytes # 1.3 10*3/uL (1.4-4.0); Lymphocytes % 18.4 % (21.3-54.2); Mean Corpuscular HGB Conc 33.1 GM/DL (32-36); Mean Corpuscular Volume 92.4 FL (87-102); Mean Platelet Volume 10.3 FL (9.6-12.0); Monocytes % 9.7 % (1.7-12.7); Neutrophils % 69.9 % (38.7-73.9); Platelet Count 117 T/CUMM (130-400); Red Blood Count 3.14 MC/CUMM (3.8-5.5); Red Cell Distribution Width 15.6 % (9.3-17.3)
[2020-02-09 05:18] LABS: Calcium 8.6 MG/DL (8.5-10.1)
[2020-02-09 05:27] LABS: Microcytosis 1+
[2020-02-09 05:28] LABS: Hypochromasia Slight; Platelet Estimate Decreased
[2020-02-09] MEDS: PANTOPRAZOLE 40 MG VIAL IV SCH (08:30)
[2020-02-09] MEDS: hydroCHLOROthiazide 25 MG TABLET PO SCH (08:31)
[2020-02-09] MEDS: LEVOTHYROXINE 75 MCG TABLET PO SCH (08:31)
[2020-02-09] MEDS: PANTOPRAZOLE 40 MG TABLET PO SCH (08:31)
[2020-02-09] MEDS: DOCUSATE SODIUM 100 MG CAPSULE PO SCH ×2 (08:31→21:08)
[2020-02-09] MEDS: POTASSIUM CHLORIDE 20 MEQ TABLET PO SCH (08:31)
[2020-02-09] MEDS ORDERED: hydrALAZINE 25 MG TABLET PO PRN (16:13)
[2020-02-09] MEDS: CITALOPRAM 20 MG TABLET PO SCH (21:08)
[2020-02-10 07:12] LABS: Basophils % 0.4 % (0.0-0.8); Eosinophils # 0.1 10*3/uL (0.0-0.87); Eosinophils % 1.3 % (0.00-10.9); Hematocrit 30.6 VOL% (35.7-47.0); Hemoglobin 9.8 GM/DL (12.0-16.0); Immature Granulocytes % 0.4 %; Immature Granulocytes Absolute 0.03 #; Lymphocytes % 13.6 % (21.3-54.2); Mean Corpuscular Volume 93.6 FL (87-102); Mean Platelet Volume 10.5 FL (9.6-12.0); Neutrophils % 75.3 % (38.7-73.9); Platelet Count 132 T/CUMM (130-400); Red Blood Count 3.27 MC/CUMM (3.8-5.5); Red Cell Distribution Width 15.6 % (9.3-17.3); White Blood Count 7.4 T/CUMM (4-12)
[2020-02-10 07:37] LABS: Hypochromasia 1+; Microcytosis 1+; Osmolality,Calculated 286.8 MOS/KG (273-304); Platelet Estimate Adequate
[2020-02-10] MEDS: PANTOPRAZOLE 40 MG VIAL IV SCH (08:31)
[2020-02-10] MEDS: hydroCHLOROthiazide 25 MG TABLET PO SCH (08:31)
[2020-02-10] MEDS: LEVOTHYROXINE 75 MCG TABLET PO SCH (08:31)
[2020-02-10] MEDS: PANTOPRAZOLE 40 MG TABLET PO SCH (08:32)
[2020-02-10] MEDS: POTASSIUM CHLORIDE 20 MEQ TABLET PO SCH (08:32)
[2020-02-10] MEDS: DOCUSATE SODIUM 100 MG CAPSULE PO SCH (08:32)
[2020-02-10 12:25] VITALS: BP 169/79
== END 2020-02-10 15:28 | disposition home health service (06) | DRG 378 ==
LOC: EDBD → EDUNIT# → N.ED 04:37 → N.EDINP 06:59 → N.TELES 07:39 → N.4E 02-07 17:22
PROVIDERS: ADMIT Internal Medicine; ATTEND Internal Medicine